=== PATIENT | male | born 1940 | race Caucasian/White ===

== ENCOUNTER 2017-01-06 14:08 | Emergency (ER) | payer MEDICARE, OTHER ==
[2017-01-06 14:40] LABS: BLOOD UREA NITROGEN 17 mg/dL (9-20); CALCIUM 10.4 mg/dL (8.4-10.2); CHLORIDE 98 mmol/L (98-107); EST GLOMERULAR FILTRATION RATE > 60 mL/min; GLUCOSE 150 mg/dL (70-100); POTASSIUM 4.4 mmol/L (3.5-5.1); SODIUM 138 mmol/L (137-145)
[2017-01-06 14:51] LABS: BAND% (Manual) 0 % (0.0-1.0); BASOPHIL % (Manual) 0 % (0.0-2.0); EOSINOPHIL % (Manual) 0 % (0.0-6.0); LYMPHOCYTE % (Manual) 29 % (20.0-40.0); MONOCYTE % (Manual) 6 % (2.0-10.0); NEUTROPHIL % (Manual) 65 % (54.0-75.0); PLATELET ESTIMATE ADEQUATE
[2017-01-06 14:52] LABS: OVALOCYTES PRESENT
[2017-01-06 14:53] LABS: HEMATOCRIT 34.5 % (42.0-54.0); HEMOGLOBIN 10.8 g/dL (14.0-18.0); MEAN CELL VOLUME 71.6 fL (80.0-100.0); MEAN CORPUS. HGB CONCENTRATION 31.2 g/dL (32.0-36.0); MEAN CORPUSCULAR HEMOGLOBIN 22.3 pg (29.0-35.0); MEAN PLATELET VOLUME 8.3 fL (7.4-10.4); PLATELET COUNT 339 X 10^3uL (130-440); RED BLOOD COUNT 4.82 X 10^6uL (4.20-6.10); RED CELL DISTRIBUTION WIDTH 17.3 % (11.5-14.5); TROPONIN I < 0.012 ng/mL (0.00-0.034); WHITE BLOOD COUNT 10.3 X 10^3uL (3.9-10.7)
--- NOTE | 2017-01-06 15:09 | ER PHYSICIAN DOCUMENTATION ---
Physician Documentation [facility] Name:Ti Espinosa Age:76 yrs Sex:Male :1940 Arrival Date:01/06/2017 Time:14:08 BedTrauma-C Private MD: Ti Suarez Disposition: 01/06/17 14:59 Discharged to Home/Self Care. Impression: Dyspnea, Anemia. - Condition is Good. - Discharge Instructions: DYSPNEA, Altitude - ALTITUDE SICKNESS. - Medical Reconciliation form form. - Follow up: Private Physician; When: As needed; Reason: Continuance of care. - Problem is new. - Symptoms have improved. - Notes: Get a complete blood count ABDIRASHID when you get home. Your hemaglobin today was 10.8 HPI: 01/06 15:00 This 76 yrs old Male presents to ER via Private Vehicle with complaints of jm Shortness Of Breath. 15:00 The patient has shortness of breath at rest. Onset: The symptom(s)/episode jm began/occurred today. Duration: The symptoms are continuous. The patient's shortness of breath is aggravated by light activity. Associated signs and symptoms: Pertinent negatives: chest pain, non-productive cough, dizziness, fever. Severity of symptoms: in the emergency department the symptoms are unchanged. The patient has not experienced similar symptoms in the past. The patient has not recently seen a physician. Pt admits to anxiety about the SOB. Pt feels it may just be the anxiety, but he wanted to come in to be sure. . Historical: - Allergies: No known drug Allergies; - Home Meds: 1. isosorbide 2. Diltiazem Oral 3. finasteride oral 4. Glyburide Oral 5. Metformin Oral 6. levothyroxine oral 7. paroxetine HCl oral 8. Prevacid Oral 9. Simvastatin Oral 10. Tekturna oral 11. Alprazolam Oral - PMHx: Diabetes - NIDDM; CAD; Hypertension; Cancer; ANXIETY; - PSHx: CABG; melanoma-back; prostate; - Tetanus: < 10 years. - Ebola Screening: : Patient negative for fever greater than or equal to 101.5 degrees Fahrenheit, and additional compatible Ebola Virus Disease symptoms. - Immunization history: Pneumococcal vaccine is up to date, Flu Vaccine < 1 year. - Social history: Smoking status: Patient states was never smoker of tobacco. ROS: 15:00 Constitutional: Negative for fever. jm 15:00 ENT: Negative for rhinorrhea, sinus congestion. 15:00 Neck: Negative for pain with movement, stiffness. 15:00 Cardiovascular: Negative for chest pain. 15:00 Respiratory: Positive for dyspnea on exertion, shortness of breath. 15:00 Abdomen/GI: Negative for abdominal pain, nausea, vomiting, diarrhea. 15:00 Psych: Negative for anxiety, depression. 15:00 All other systems are negative. Exam: 15:00 Constitutional: The patient appears in no acute distress, alert, awake, obese. jm 15:00 Eyes: Pupils: equal, round, and reactive to light and accomodation, Extraocular movements: intact throughout. 15:00 ENT: Posterior pharynx: is normal, Voice: is normal. 15:00 Chest/axilla: Inspection: normal, Palpation: is normal. 15:00 Cardiovascular: Rhythm: regular, Pulses: no pulse deficits are appreciated. 15:00 Respiratory: the patient does not display signs of respiratory distress, Respirations: normal, Breath sounds: are normal. 15:00 Abdomen/GI: Bowel sounds: normal, Palpation: abdomen is soft and non-tender. 15:00 Musculoskeletal/extremity: DVT Exam: No signs of deep vein thrombosis. Calves: are non-tender, have equal circumference. 15:00 Skin: Appearance: Color: pink, no rash present. 15:00 Neuro: Mentation: is normal, Memory: is normal. 15:00 Psych: Behavior/mood is pleasant, cooperative, anxious, Affect is calm. Vital Signs: 15:08 BP 156 / 73; Pulse 70; Resp 16; Pulse Ox 94% on R/A; Pain 0/10; rh MDM: 14:10 Patient medically screened. 14:18 EKG attached lp 15:00 ED course: Pt w Fe deficient anemia. Pt denies black/red stools. Pt will f/u w PCP when jm he gets home in 2 days and recheck a CBC. . 18:45 Differential diagnosis: Anemia Anxiety Reaction Myocardial Infarction pulmonary edema, jm Pulmonary Embolism. Data reviewed: vital signs, nurses notes, lab test result(s), EKG, radiologic studies, and as a result, I will discharge patient. Test interpretation: by ED physician or midlevel provider: plain radiologic studies, ECG. Counseling: I had a detailed discussion with the patient and/or guardian regarding: the historical points, exam findings, and any diagnostic results supporting the discharge/admit diagnosis, lab results, radiology results, the need for outpatient follow up, with the patient's primary care provider. ECG:. 01/06 14:41 Order name: BASIC METABOLIC PANEL; Complete Time: 14:54 [facility] 01/06 14:44 Order name: DDIMER; Complete Time: 14:54 [facility] 01/06 14:45 Interpretation: Normal. 01/06 14:53 Order name: MANUAL DIFFERENTIAL; Complete Time: 14:54 [facility] 01/06 14:54 Order name: CBC WITHOUT A DIFFERENTIAL; Complete Time: 14:54 [facility] 01/06 14:54 Order name: BNP,NT-PRO; Complete Time: 14:54 [facility] 01/06 14:54 Order name: TROPONIN I; Complete Time: 14:54 [facility] 01/07 20:35 Order name: CXR 2V [id number] [facility] 01/06 14:12 Order name: 12-lead EKG; Complete Time: 14:22 01/06 14:12 Order name: Continuous Cardiac Monitoring; Complete Time: 14:22 01/06 14:12 Order name: I & O; Complete Time: 14:22 01/06 14:12 Order name: Iv Saline Lock; Complete Time: 14: 01/06 14:12 Order name: Pulse Ox Continuous; Complete Time: 14: EC:45 Rhythm is regular. QRS [place] is Normal. MN interval is normal. QRS interval is normal. QT interval is normal. No Q waves. T waves are Normal. No ST changes noted. Dispensed Medications: No medications were administered Signatures: Nisha Onofre, RN RN Ti Deutsch MD MD jm Alexander, Linda la Hofsess, Belen rh
--- NOTE | 2017-01-06 15:09 | ER NURSING DOCUMENTATION ---
Nurse's Notes [facility] Name:Ti Espinosa Age:76 yrs Sex:Male :1940 Arrival Date:01/06/2017 Time:14:08 BedTrauma-C Private MD: Diagnosis:Dyspnea;Anemia Presentation: 01/06 14:10 Presenting complaint: Patient states: feeling SOB around 1.5 days ago, got to [place] from [facility] on . 1.5 months ago he had a cardiac cath started on isosorbide. 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 Transition of care: Other hotel. 14:10 Acuity: COSMO 2 la 14:10 Method Of Arrival: Private Vehicle la 14:11 Acuity: COSMO 2 rh Triage Assessment: 14:19 General: Appears comfortable, Behavior is appropriate for age, cooperative, pleasant. la Pain: Denies pain. EENT: Nares bilaterally feeling congested with sinus pressure. Neuro: Level of Consciousness is awake, alert, obeys commands, Oriented to person, place, time, event. Cardiovascular: Rhythm is sinus rhythm Chest pain is denied. Respiratory: Airway is patent Trachea midline Respiratory effort is even, unlabored, Respiratory pattern is regular, symmetrical, Reports shortness of breath at rest Onset: The symptoms/episode began/occurred yesterday, the patient has mild shortness of breath. GI: No deficits noted. : No deficits noted. Derm: No deficits noted. Musculoskeletal: No deficits noted. Historical: - Allergies: No known drug Allergies; - Home Meds: 1. isosorbide 2. Diltiazem Oral 3. finasteride oral 4. Glyburide Oral 5. Metformin Oral 6. levothyroxine oral 7. paroxetine HCl oral 8. Prevacid Oral 9. Simvastatin Oral 10. Tekturna oral 11. Alprazolam Oral - PMHx: Diabetes - NIDDM; CAD; Hypertension; Cancer; ANXIETY; - PSHx: CABG; melanoma-back; prostate; - Tetanus: < 10 years. - Ebola Screening: : Patient negative for fever greater than or equal to 101.5 degrees Fahrenheit, and additional compatible Ebola Virus Disease symptoms. - Immunization history: Pneumococcal vaccine is up to date, Flu Vaccine < 1 year. - Social history: Smoking status: Patient states was never smoker of tobacco. Screenin:22 Infectious Disease Risk None. Abuse screen: Denies threats or abuse. Nutritional la screening: No deficits noted. Assessment: 14:22 See Triage Assessment done by same RN. la Vital Signs: 15:08 BP 156 / 73; Pulse 70; Resp 16; Pulse Ox 94% on R/A; Pain 0/10; rh ED Course: 14:06 EKG done. (by ED staff). Reviewed by Ti Rubio MD. 14:09 Patient arrived in ED. dp 14:10 Letty Pillai is Primary Nurse. la 14:11 Triage completed. 14:11 Ti Rubio MD is Attending Physician. 14:18 EKG attached lp 14:18 Inserted peripheral IV: 20 gauge in right antecubital area and blood collected. rh INSERTED BY RUTH MOSES. 14:20 Inserted saline lock: 20 gauge in right antecubital area and blood collected. la 14:22 Valuables Remains with patient Patient has correct armband on for positive la identification. Placed in gown. Bed in low position. Call light in reach. Side rails up X 1. compliance monitor on. Pulse ox on. NIBP on. Noise minimized. Verbal reassurance given. Warm blanket given. Pillow given. 14:29 Patient moved to radiology. dnn 14:39 Patient moved back from radiology. dnn Administered Medications: No medications were administered Outcome: 14:59 Discharge ordered by . 15:08 Discharged to home ambulatory, with significant other. 15:08 Condition: improved 15:08 Discharge Assessment: Patient awake, alert and oriented x 3. No cognitive and/or functional deficits noted. Patient verbalized understanding of disposition instructions. 15:08 Discharge instructions given to patient, significant other, Instructed on discharge instructions, follow up and referral plans. Demonstrated understanding of instructions. 15:09 Patient left the ED. Signatures: Nisha Onofre RN RN lp Meyer, John, MD MD jm Norman, David dnn Alexander, Linda la Hofsess, Rachel Heidi Meyer dp
--- NOTE | 2017-01-07 19:24 | RADIOLOGY REPORT ---
Two views of the chest, without prior films for comparison, demonstrate evidence of prior sternal splitting thoracotomy. The heart and vessels are unremarkable. The lung [place] are clear. No infiltrate, fluid or pneumothorax is seen. IMPRESSION: Post surgical changes. No acute cardiopulmonary abnormality is identified. MTDD
== END 2017-01-06 15:09 | disposition home or self-care (01) ==
LOC: ER 14:08
DX: R06.00 Dyspnea, unspecified (principal); D50.9 Iron deficiency anemia, unspecified; R06.02 Shortness of breath; E11.9 Type 2 diabetes mellitus without complications; I25.10 Atherosclerotic heart disease of native coronary artery without angina pectoris; Z95.1 Presence of aortocoronary bypass graft; I10 Essential (primary) hypertension; Z79.899 Other long term (current) drug therapy
CPT/HCPCS: 71020; 80048; 83880; 84484; 85027; 85379; 93005; 93010; 99284; 99285